=== PATIENT | female | born 1995 | race Two or more races ===

== ENCOUNTER 2021-03-27 21:28 | Emergency (ER) | payer BC, OTHER ==
[~2021-03-27] VITALS: Ht 160 cm; Wt 72.6 kg
--- NOTE | 2021-03-27 22:10 | NUR ---
PATIENT BIBS FOR RIGHT INDEX KNUCKLE LACERATION WHILE WASHING DISHES. PATIENT IS A/OX4, RR EVEN AND UNLABORED. PATIENT VSS. WILL CONTINUE TO MONITOR.
[2021-03-27] MEDS ORDERED: LIDOCAINE HCL/PF 1% 30 ML SDV ONE (22:31)
[2021-03-27 23:08] VITALS: BP 131/84
== END 2021-03-27 23:09 | disposition home or self-care (01) ==
LOC: ER 21:31
DX: S61.211A Laceration without foreign body of left index finger without damage to nail, initial encounter (principal); F41.9 Anxiety disorder, unspecified; E03.9 Hypothyroidism, unspecified; Z60.2 Problems related to living alone; W26.8XXA Contact with other sharp object(s), not elsewhere classified, initial encounter; Y93.G1 Activity, food preparation and clean up; Y92.89 Other specified places as the place of occurrence of the external cause; Y99.8 Other external cause status
CPT/HCPCS: 12001; 99282; J3490